=== PATIENT | female | born 1940 | race Caucasian/White ===

== ENCOUNTER 2022-09-07 10:07 | Inpatient (IN) | payer MEDICARE ==
[~2022-09-07] VITALS: Ht 149.9 cm; Wt 61.0 kg
[2022-09-07 10:15] VITALS: BP_SYST 184
[2022-09-07] MEDS ORDERED: iohexoL 350 mgI/mL, 100 ML INFUS..BTL IV ONE (10:23)
[2022-09-07] MEDS ORDERED: LOSA100T3 PO (10:26)
[2022-09-07] MEDS ORDERED: AMLO5TAB92 PO (10:26)
[2022-09-07] MEDS ORDERED: FAMO40TA71 PO (10:26)
[2022-09-07] MEDS ORDERED: METF1000 PO (10:26)
[2022-09-07] MEDS ORDERED: PIOG30TA71 PO (10:26)
[2022-09-07] MEDS ORDERED: ATEN-41 PO (10:26)
[2022-09-07] MEDS ORDERED: CLOP75TA2 PO (10:27)
--- NOTE | 2022-09-07 10:50 | NUR ---
Unable to obtain PIV for CT angio. CN notified.
[2022-09-07 11:11] LABS: BASOPHILS # (AUTO) 0.1 K/uL (0.0-0.2); BASOPHILS % (AUTO) 0.7 % (0.0-2.0); EOSINOPHILS % (AUTO) 0.3 % (0.0-4.0); HEMATOCRIT 33.3 % (36-48); HEMOGLOBIN 10.9 g/dL (12.0-16.0); LYMPHOCYTES # (AUTO) 1.4 K/uL (1.0-5.5); MEAN CORPUSCULAR HEMOGLOBIN 25 pg (27-31); MEAN CORPUSCULAR HGB CONC 33 % (32-36); MEAN CORPUSCULAR VOLUME 76 fL (79.0-98.0); MONOCYTES # (AUTO) 0.4 K/uL (0.0-1.0); MONOCYTES % (AUTO) 5.6 % (1.7-9.3); NEUTROPHILS # (AUTO) 5.6 K/uL (1.8-7.7); NEUTROPHILS % (AUTO) 74.4 % (40.0-70.0); PLATELET COUNT (AUTO) 231 K/uL (130-430); RED BLOOD CELL COUNT(AUTO) 4.39 MIL/uL (4.2-6.2); RED CELL DISTRIBUTION WIDTH 18.8 % (9.0-15.0); WHITE BLOOD COUNT (AUTO) 7.6 K/uL (4.8-10.8)
[2022-09-07 11:19] LABS: ANION GAP 7 (5-15); CALCIUM 8.7 mg/dL (8.4-11.0); CHLORIDE 99 mmol/L (98-107); CREATININE 1.01 mg/dL (0.55-1.30); GLUCOSE 261 mg/dL (70-99); UREA NITROGEN, BLOOD 14 mg/dL (8-21)
[2022-09-07 11:26] LABS: ALANINE AMINOTRANSFERASE 14 U/L (12-78); ALBUMIN 3.4 g/dL (3.4-4.8); ASPARTATE AMINOTRANSFERASE 19 U/L (10-37); TOTAL BILIRUBIN 0.8 mg/dL (0.0-1.0)
[2022-09-07] MEDS ORDERED: ASPIRIN 81 MG TAB.CHEW PO ONE (11:45)
[2022-09-07] MEDS ORDERED: NACL 0.9% 1,000 ML IV ONE (11:45)
[2022-09-07 14:20] LABS: BILIRUBIN,URINE NEGATIVE (NEGATIVE); BLOOD, URINE NEGATIVE (NEGATIVE); CLARITY/URINE CLEAR (CLEAR); COLOR,URINE YELLOW (YELLOW); GLUCOSE,URINE 3+ (NEGATIVE); KETONES,URINE NEGATIVE (NEGATIVE); LEUKOCYTE ESTERASE ,URINE NEGATIVE (NEGATIVE); NITRITE, URINE NEGATIVE (NEGATIVE); PH,URINE 6.5 (5.0-8.0); PROTEIN URINE NEGATIVE (NEGATIVE); UROBILINOGEN,URINE 0.2 (0.2-1.0)
[2022-09-07 14:45] LABS: BARBITURATE, URINE NEGATIVE (NEG <=200); BENZODIAZEPINE, URINE NEGATIVE (NEG <=150); CANNABINOID, URINE NEGATIVE (NEG <=50); COCAINE, URINE NEGATIVE (NEG <=150); METHAMPHETAMINES SCREEN,URINE NEGATIVE (NEG <=500); OPIATE, URINE NEGATIVE (NEG <=100); PHENCYCLIDINE SCREEN,URINE NEGATIVE (NEG <=25); URINE AMPHETAMINE NEGATIVE (NEG <=500); URINE METHADONE NEGATIVE (NEG <=200); URINE OXYCODONE SCREEN NEGATIVE (NEG <=100); URINE PROPOXYPHENE SCREEN NEGATIVE (NEG <=300)
[2022-09-07 14:46] LABS: UR TRICYCLIC ANTIDEPRESSANTS NEGATIVE (NEG <=300)
[2022-09-07 15:01] LABS: BACTERIA,URINE None Seen /HPF (None Seen); RBC,URINE 0-3 /HPF (0-3); WBC,URINE 0-3 /HPF (0-3)
--- NOTE | 2022-09-07 15:30 | NUR ---
Pts son requesting update on [facility] transfer. Informed son waiting on [facility] ETA.
--- NOTE | 2022-09-07 16:40 | NUR ---
Pts son requesting to take pt and drive to . Informed son she would be leaving against medical advice. Informed son pt would need to restart the whole process over again at . Son decided to keep pt here and he will call himself to follow up on transfer.
--- NOTE | 2022-09-07 17:29 | NUR ---
Son speaking to CN regarding transfer.
--- NOTE | 2022-09-07 18:35 | NUR ---
Pt provided with dinner tray.
--- NOTE | 2022-09-07 18:40 | NUR ---
Admit bed requested Patient will be admitted to care of . Admitted to TELEMETRY unit. Diagnosis TIA Inpatient (Yes or No) YES Observation (Yes or No) NO Orientation concerns or request close to nursing station (Yes or No) NO Covid Status NEGATIVE On vent or bipap NO Isolation requirements NONE Needs a sitter NO From Home (Yes or if No enter name of facility) YES Requires Dialysis (Yes or No) NO Med Rec Completed (Yes of No) YES
--- NOTE | 2022-09-07 19:03 | NUR ---
[facility] called back and accepted admission. Claims ref#- [id number]
[2022-09-07] MEDS ORDERED: DOCUSATE SODIUM 100 MG CAPSULE PO PRN (19:45)
[2022-09-07] MEDS ORDERED: ACETAMINOPHEN 325 MG TABLET PO PRN (19:45)
[2022-09-07] MEDS ORDERED: NALOXONE HCL 0.4 MG/ML AMP (NARCAN) IVP PRN ×2 (19:45)
[2022-09-07] MEDS ORDERED: POTASSIUM CHLORIDE 20 MEQ TAB.PRT.SR PO PRN (19:45)
[2022-09-07] MEDS ORDERED: MUPIROCIN 2% TOPICAL OINTMENT 22 GM NS PRN (19:45)
[2022-09-07] MEDS ORDERED: ONDANSETRON HCL 4 MG/2 ML VIAL IVP PRN (19:45)
[2022-09-07] MEDS ORDERED: DEXTROSE 50% JECT 50 ML DISP.SYRIN IVP PRN (19:45)
[2022-09-07] MEDS ORDERED: MORPHINE 2 MG/ML INJ. SYRINGE IVP PRN ×2 (19:45)
[2022-09-07] MEDS ORDERED: LORazepam 2 MG/ML VIAL IVP PRN (19:45)
[2022-09-07] MEDS ORDERED: ZOLPIDEM TARTRATE 5 MG TABLET PO PRN (19:45)
[2022-09-07] MEDS ORDERED: MAGNESIUM SULFATE 50 ML IV PRN (19:45)
--- NOTE | 2022-09-07 20:10 | NUR ---
Pt received up in bed in stable condition. Denies any pain/discomfort at this time. Daughter at bedside. Up to date on POC.
[2022-09-07] MEDS: metFORMIN HCL 500 MG TABLET PO SCH (21:00)
[2022-09-07] MEDS: ATENOLOL 25 MG TABLET(TENORMIN) PO SCH (21:50)
--- NOTE | 2022-09-07 21:54 | NUR ---
Patient will be admitted to care of [facility]. Admitted to TELE unit. Will go to room 104A. Complete and up to date summary report printed. SBAR report given at bedside to ABIMBOLA Chou with opportunity for questions.
--- NOTE | 2022-09-07 21:55 | NUR ---
ADMISSION NOTE Received patient from ER via gurney. Patient admitted with diagnosis of TIA. Patient oriented to hospital room, call light, toileting, pain management and safety-teach back done. Patient informed that their room number is 104A. Personal belongings checked and Belongings List documented. Call light within reach.
[2022-09-07 22:47] VITALS: BP_SYST 185
[2022-09-08 01:15] VITALS: BP_SYST 159
--- NOTE | 2022-09-08 05:23 | NUR ---
EQUAL STRENGTH TO ALL EXTREMITIES. STEADY GAIT NEEDS STANDBY ASSIST. NO FACIAL DROOP, NO SLURRED SPEECH, DENIES NUMBNESS/TINGLING. NO DIFFICULTY SWALLOWING
[2022-09-08] MEDS: INSULIN LISPRO SLIDING SCALE 100 UNITS/ML, 3 ML VIAL (humaLOG) SUBCUT PRN ×2 (06:46→13:13)
[2022-09-08 07:38] LABS: ANION GAP 11 (5-15); CALCIUM 8.6 mg/dL (8.4-11.0); CHLORIDE 100 mmol/L (98-107); CHOLESTEROL 121 mg/dL (<200); CREATININE 0.77 mg/dL (0.55-1.30); GLUCOSE 167 mg/dL (70-99); HDL CHOLESTEROL 53 mg/dL (>55); LDL CHOLESTEROL 51 mg/dL (<100); TRIGLYCERIDES 141 mg/dL (30-150); UREA NITROGEN, BLOOD 13 mg/dL (8-21)
[2022-09-08] MEDS ORDERED: LIP10 PO (07:50)
[2022-09-08 08:00] VITALS: BP_SYST 152
--- NOTE | 2022-09-08 08:00 | NUR ---
Miss Marcial has been assessed as indicated. She continues to deny pain and has no facial droop and extremities are equal. she is awaiting MRI examination at this time
[2022-09-08 08:25] LABS: BASOPHILS # (AUTO) 0.1 K/uL (0.0-0.2); BASOPHILS % (AUTO) 0.6 % (0.0-2.0); EOSINOPHILS % (AUTO) 0.3 % (0.0-4.0); HEMOGLOBIN 10.7 g/dL (12.0-16.0); LYMPHOCYTES # (AUTO) 2.1 K/uL (1.0-5.5); LYMPHOCYTES % (AUTO) 24.6 % (20.5-51.5); MEAN CORPUSCULAR HEMOGLOBIN 25 pg (27-31); MEAN CORPUSCULAR HGB CONC 33 % (32-36); MEAN CORPUSCULAR VOLUME 75 fL (79.0-98.0); MONOCYTES # (AUTO) 0.6 K/uL (0.0-1.0); MONOCYTES % (AUTO) 7.3 % (1.7-9.3); NEUTROPHILS # (AUTO) 5.8 K/uL (1.8-7.7); NEUTROPHILS % (AUTO) 67.2 % (40.0-70.0); PLATELET COUNT (AUTO) 260 K/uL (130-430); RED BLOOD CELL COUNT(AUTO) 4.25 MIL/uL (4.2-6.2); RED CELL DISTRIBUTION WIDTH 18.8 % (9.0-15.0); WHITE BLOOD COUNT (AUTO) 8.6 K/uL (4.8-10.8)
[2022-09-08] MEDS ORDERED: ASPIRIN 81 MG TABLET(ECOTRIN) PO SCH (09:00)
[2022-09-08] MEDS ORDERED: CLOPIDOGREL BISULFATE 75 MG TABLET PO SCH (09:00)
[2022-09-08] MEDS ORDERED: amLODIPine BESYLATE 5 MG TABLET PO SCH (09:00)
[2022-09-08] MEDS ORDERED: LOSARTAN POTASSIUM 50 MG TABLET (COZAAR) PO SCH (09:00)
[2022-09-08] MEDS: ATENOLOL 25 MG TABLET(TENORMIN) PO SCH (11:45)
[2022-09-08] MEDS: metFORMIN HCL 500 MG TABLET PO SCH (11:45)
[2022-09-08 12:00] VITALS: BP_SYST 159
--- NOTE | 2022-09-08 15:39 | NUR ---
MRI results reported to dr MENCHACA. These results coupled with the fact the fact that the symptoms have resolved, Miss Marcial can be DC to home. Please have her follow up with Dr. Menchaca in his office in 3 weeks
[2022-09-08 16:03] VITALS: BP_SYST 159
--- NOTE | 2022-09-08 17:05 | NUR ---
Miss Marcial has been DC to home. DC instructions have been reviewed with her son Nacho. Who was at the bedside this shift. he expressed that he understood and signed a document to indicate this. He was encouraged to see Dr Crowley. the neurologist that saw her here in three weeks. He sates that he was sure that [place] had one she could see. He was encouraged to follow up with the neurologist of his choice in 3 weeks. IV access wa removed and she was escorted to the front door via WC by staff. At the time of DC Miss Marcial had no s/s of distress or discomfort and was compliant with the plan to DC home. her son was also compliant with the plan to DC
[2022-09-08] MEDS ORDERED: FAMOTIDINE 20 MG TABLET PO SCH (21:00)
== END 2022-09-08 17:05 | disposition home or self-care (01) | DRG 74 ==
LOC: SED 10:07 → STU 18:34
PROVIDERS: ADMIT General Practice; ATTEND General Practice
DX: G90.8 Other disorders of autonomic nervous system (principal); K21.9 Gastro-esophageal reflux disease without esophagitis; D63.8 Anemia in other chronic diseases classified elsewhere; I10 Essential (primary) hypertension; E78.5 Hyperlipidemia, unspecified; E11.9 Type 2 diabetes mellitus without complications; Z20.822 Contact with and (suspected) exposure to COVID-19; Z90.5 Acquired absence of kidney; Z86.73 Personal history of transient ischemic attack (TIA), and cerebral infarction without residual deficits; Z85.3 Personal history of malignant neoplasm of breast; Z90.12 Acquired absence of left breast and nipple
CPT/HCPCS: 36415; 70450-TC; 70551; 71045; 76376; 80048; 80053; 80061; 80307; 81000; 82962; 83036; 83735; 84484; 85025; 85610-TC; 85730-TC; 86886; 86900; 86901; 93005; 99285; G0378; J7030; Q9967